=== PATIENT | male | born 1995 | race Caucasian/White ===

== ENCOUNTER 2020-09-28 09:58 | Emergency (ER) | payer OTHER, SELFPAY ==
--- NOTE | 2020-09-28 10:04 | ED.GENADULT ---
HPI - General Adult General Chief complaint: Upper Respiratory Infection Stated complaint: cough and throat Time Seen by Provider: 09/28/20 10:03 Source: patient Mode of arrival: ambulatory Limitations: no limitations History of Present Illness HPI narrative: 25 y/o male. PMH includes: Streptococcal sore throat. Presents to the [facility] clinic today with acute complaints of nasal congestion, sore throat symptoms, as well as non-productive cough for the past 5 days. He reports sub-therapeutic relief with OTC remedies. He states his sore throat is getting worse , and is wondering if it is Strep throat because he has had it many times in the past . He reports to be up all night coughing cannot get any rest . Client denies known ill contact or Covid 19 exposure, but does work with public so cannot be sure . He is mildly febrile on arrival, oral Temp 37.9 C, non-tachycardic. No AGUILA, otalgia. No dysphagia, dyspnea, or involuntary drooling. No chest pain, wheezing. No abdominal pain, N/V/D. No additional acute c/o upon PE. Related Data Allergies Allergy/AdvReac Type Severity Reaction Status Date / Time No Known Allergies Allergy Verified 09/28/20 10:14 Review of Systems Review of Systems: Narrative: CONSTITUTIONAL: Denies fever, chills, sweats. EYES: Denies visual changes, redness, discharge. ENT: Positive rhinorrhea, congestion, & sore throat. No otalgia. CARDIOVASCULAR: Denies chest pain, palpitations, edema. RESPIRATORY: Positive cough. Denies dyspnea, wheezing. GASTROINTESTINAL: Denies abdominal pain, nausea, vomiting, diarrhea. GENITOURINARY: Denies dysuria, hematuria, abnormal discharge SKIN: Denies rash or itching. MUSCULOSKELETAL: Denies acute back pain, joint pain, or myalgia. NEUROLOGIC: Denies numbness, or focal weakness. PSYCHIATRIC: Denies anxiety or depression. PMFSH Comments At the time of my signature I agree with nursing past medical history, surgical, social, and family history. There is no relevant family history pertinent to the presenting complaint. Exam Narrative: Exam Narrative: GENERAL: This is a well-nourished, well-developed patient, in no apparent distress. HEAD: normocephalic, atraumatic. EYES: PERRL. Sclera clear/white. Vision is grossly intact. EARS: External ears normal, auditory canals clear and without drainage, TMs normal without perforation. Hearing grossly intact. NOSE: External nose normal. Positive nasal congestion, purulent. Nares patent. THROAT: Mucous membranes moist. Posterior pharynx is erythematous, with minimal exudate. No oropharyngeal swelling. Positive PND. NECK: Neck supple, non-tender without lymphadenopathy, masses or thyromegaly. CARDIOVASCULAR: Regular rate and rhythm without murmurs, gallops, or rubs. RESPIRATORY: Breath sounds equal bilaterally. Upper airway Rhonchi, cleared with cough. No wheezes, or rales. No retractions. No distress. GASTROINTESTINAL: Abdomen soft, non-tender, nondistended. Bowel sounds are active. No hepato-splenomegaly, or palpable masses. No guarding. SKIN: warm, intact with no suspicious lesions or rash, good texture and turgor. NEURO: awake, alert, and oriented to person, place and time. There were no obvious focal neurologic abnormalities. Steady gait EXTREMITIES: Normal range of motion. No edema. No calf tenderness. Negative Homans sign bilaterally. BACK: Nontender without deformity or crepitance. No flank tenderness. Const: General: no acute distress Orientation/consciousness: patient oriented x3 Course Course Emergency Course: Rapid strep & Influenza testing has been discussed with client: Negative. However, I will start him on oral Amoxicillin regimen for Streptococcal throat coverage, as he has a strong reported history of this disease process, and rapid testing may sometimes yield false negative in early stages. He has been given antipyretic, and directed to resume home Tylenol/Ibu alteration as needed for symptomatic relief. He is n
[2020-09-28 10:06] VITALS: BP 141/83; PULSE 87; RESP 16; TEMP 37.9; O2SAT 100
--- NOTE | 2020-09-28 10:33 | PC.NURSE ---
provider ordered tylenol 1000 mg po to be given. computer not allowing nurse to chart. pt given the tylenol and verified by daysi young rn unable to chart in the mar
== END 2020-09-28 10:46 | disposition home or self-care (01) ==
PROVIDERS: Emergency Provider Nurse Practitioner Adult Health; PCP Physician Assistant Medical
DX: B34.9 Viral infection, unspecified (principal); J06.9 Acute upper respiratory infection, unspecified; J02.9 Acute pharyngitis, unspecified; Z20.828 Contact with and (suspected) exposure to other viral communicable diseases
CPT/HCPCS: 87081; 87804; 87880; 99203; G0463